=== PATIENT | female | born 1970 | race Caucasian/White ===

== ENCOUNTER 2016-10-16 12:17 | Emergency (ER) | payer OTHER ==
[~2016-10-16] VITALS: Ht 165.1 cm; Wt 74.9 kg
[2016-10-16 12:50] LABS: ADD MIUA? YES; BILIRUBIN NEGATIVE; BLOOD LARGE; COLOR YELLOW ((YELLOW)); GLUCOSE (STRIP) NEGATIVE; KETONES NEGATIVE; LEUKOCYTES MODERATE; NITRITE NEGATIVE; PROTEIN (STRIP) 100; SPECIFIC GRAVITY 1.032 (1.000-1.030)
[2016-10-16 13:01] LABS: BACTERIA RARE /HPF; EPITHELIAL CELLS RARE /HPF; MUCUS TRACE /LPF; RED BLOOD CELLS TNTC /HPF (0-5)
[2016-10-16 13:01] LABS: HEMATOCRIT 42.5 % (36.0-46.0); MCHC 34.4 G/DL (30.0-36.0); MCV 84.3 FL (83-99); MEAN PLAT.VOLUME 9.3 uM^3 (9.5-12.4); PLATELET COUNT 364 K/uL (156-360); RBC DIS.WIDTH-CV 12.3 % (11.8-14.6); RBC DIS.WIDTH-SD 37.4 % (39-53); RED BLOOD COUNT 5.04 M/uL (3.80-5.20); WHITE BLOOD COUNT 11.4 K/uL (4.1-10.2)
[2016-10-16 13:04] LABS: CHLORIDE 105 mEq/L (99-109); POTASSIUM 4.4 mEq/L (3.7-5.4); SODIUM 141 mEq/L (136-147)
[2016-10-16 13:06] LABS: GLUCOSE 117 mg/dL (70-99)
[2016-10-16 13:07] LABS: ANION GAP 15 MEQ/L (2-14)
[2016-10-16 13:10] LABS: GFR ESTIMATE (CALCULATED) 56 mL/min/
[2016-10-16 13:11] LABS: UREA NITROGEN (BUN) 19 mg/dL (9-23)
[2016-10-16] MEDS ORDERED: PERCOCET 5/31 TABLET PO (14:13)
[2016-10-16] MEDS ORDERED: FLOMAX0.4 MG PO (14:13)
[2016-10-16] MEDS ORDERED: ZOFRAN ODT4 MG PO (14:13)
[2016-10-16 14:46] VITALS: BP 112/69
[2016-10-17] MEDS ORDERED: EXCEDRIN MIGRA1 EAC3 PO (00:43)
[2016-10-17] MEDS ORDERED: MOTRIN IB200 MG PO (00:44)
[2016-10-17] MEDS ORDERED: TYLENOL EXTRA500 MG PO (00:44)
[2016-10-17] MEDS ORDERED: PERCOCET 5/31 TABLET PO (14:13)
[2016-10-17] MEDS ORDERED: CEFDINIR300 MG PO (14:13)
== END 2016-10-16 14:46 | disposition home or self-care (01) ==
LOC: EME 12:17
PROVIDERS: Physician Assistant
DX: N13.2 Hydronephrosis with renal and ureteral calculous obstruction (principal); Z87.442 Personal history of urinary calculi
CPT/HCPCS: 74176; 80048; 81003; 85027; 87086; 99281; 99285; J1885; J3010

== ENCOUNTER 2016-10-16 21:54 | Observation (INO) | payer OTHER ==
[~2016-10-16] VITALS: Ht 162.6 cm; Wt 76.0 kg
[~2016-10-16 21:54] MED LIST: FLOMAX0.4 MG PO; PERCOCET 5/31 TABLET PO; ZOFRAN ODT4 MG PO
[2016-10-16 23:29] LABS: HEMATOCRIT 35.8 % (36.0-46.0); MCH 29.4 PG (29.0-34.0); MCHC 34.6 G/DL (30.0-36.0); MCV 84.8 FL (83-99); MEAN PLAT.VOLUME 9.5 uM^3 (9.5-12.4); PLATELET COUNT 293 K/uL (156-360); RBC DIS.WIDTH-CV 12.3 % (11.8-14.6); RBC DIS.WIDTH-SD 37.6 % (39-53); RED BLOOD COUNT 4.22 M/uL (3.80-5.20); WHITE BLOOD COUNT 15.3 K/uL (4.1-10.2)
[2016-10-16 23:35] LABS: CHLORIDE 109 mEq/L (99-109); POTASSIUM 3.6 mEq/L (3.7-5.4); SODIUM 140 mEq/L (136-147)
[2016-10-16 23:38] LABS: ANION GAP 10 MEQ/L (2-14); GLUCOSE 182 mg/dL (70-99)
[2016-10-16 23:41] LABS: GFR ESTIMATE (CALCULATED) 43 mL/min/
[2016-10-16 23:42] LABS: UREA NITROGEN (BUN) 22 mg/dL (9-23)
[2016-10-16 23:50] LABS: QUANTITATIVE HCG < 4.0 MIU/ML
[2016-10-17] MEDS ORDERED: EXCEDRIN MIGRA1 EAC3 PO (00:43)
[2016-10-17] MEDS ORDERED: TYLENOL EXTRA500 MG PO (00:44)
[2016-10-17] MEDS ORDERED: MOTRIN IB200 MG PO (00:44)
[2016-10-17 03:09] VITALS: BP 114/63
[2016-10-17 05:47] LABS: EOSINOPHIL (%) 0.2 % (0-5); HEMATOCRIT 37.2 % (36.0-46.0); IMMATURE GRANULOCYTE (%) 0.2 % (0.0-0.7); LYMPHOCYTE COUNT 1.7 K/uL (1.0-2.8); MCH 30.1 PG (29.0-34.0); MCHC 34.4 G/DL (30.0-36.0); MCV 87.5 FL (83-99); MEAN PLAT.VOLUME 9.5 uM^3 (9.5-12.4); MONOCYTE (%) 4.8 % (3-12); MONOCYTE COUNT 0.7 K/uL (0-0.8); NEUTROPHIL (%) 81.8 % (45-76); PLATELET COUNT 287 K/uL (156-360); RBC DIS.WIDTH-CV 12.6 % (11.8-14.6); RBC DIS.WIDTH-SD 40.4 % (39-53); RED BLOOD COUNT 4.25 M/uL (3.80-5.20); WHITE BLOOD COUNT 13.5 K/uL (4.1-10.2)
[2016-10-17 06:55] LABS: ANION GAP 6 MEQ/L (2-14); CHLORIDE 108 MEQ/L (99-109); GFR ESTIMATE (CALCULATED) 51 mL/min/; SAMPLE HEMOLYSIS CHECK 0; SAMPLE ICTERIC CHECK 0; SAMPLE LIPEMIA CHECK 0; SODIUM 142 MEQ/L (136-147); UREA NITROGEN (BUN) 17 mg/dL (9-23)
[2016-10-17 07:02] LABS: GLUCOSE 103 mg/dL (70-99); POTASSIUM 4.5 MEQ/L (3.7-5.4)
[2016-10-17 07:48] VITALS: BP 104/58
[2016-10-17] MEDS ORDERED: PERCOCET 5/31 TABLET PO (14:13)
[2016-10-17] MEDS ORDERED: CEFDINIR300 MG PO (14:13)
== END 2016-10-17 17:12 | disposition home or self-care (01) ==
LOC: EME 21:54 → EDOF 10-17 02:13 → 5WEST 10-17 02:59
PROVIDERS: Emergency Medicine; Hospitalist
PROC: 0T778DZ Dilation of Left Ureter with Intraluminal Device, Via Natural or Artificial Opening Endoscopic (ICD-10-PCS; principal; 2016-10-17)
DX: N13.6 Pyonephrosis (principal); J45.909 Unspecified asthma, uncomplicated; F32.9 Major depressive disorder, single episode, unspecified; R11.2 Nausea with vomiting, unspecified
CPT/HCPCS: 80048; 80048 91; 84702; 85025; 85027; 99281; 99285; C1876; G0378; J0131; J0696; J1644; J2250; J2270; J2405; J2765; J3010; J7030; J7050